=== PATIENT | male | born 1990 | race American Indian/Alaskan Native ===

== ENCOUNTER 2016-06-30 14:31 | Emergency (ER) | payer MEDICAID, OTHER ==
[~2016-06-30] VITALS: Ht 170.2 cm; Wt 97.9 kg
[2016-06-30 14:33] VITALS: BP 149/74
[2016-06-30 15:55] LABS: ASPARTATE AMINO TRANSFERASE 48 U/L (15-37); BLOOD UREA NITROGEN 8 mg/dL (7-18)
[2016-06-30] MEDS ORDERED: CEFAZOLIN 1,000 MG ONE (16:24)
[2016-06-30] MEDS ORDERED: CEFAZOLIN 1,000 MG IM ONE (16:30)
== END 2016-06-30 16:42 | disposition home or self-care (01) ==
LOC: ED 16:00
DX: L73.9 Follicular disorder, unspecified (principal)
CPT/HCPCS: 36415; 80053; 83605; 85025; 85651; 93971; 96372; 99285; J0690

== ENCOUNTER 2017-08-11 13:40 | Emergency (ER) | payer MEDICAID ==
[~2017-08-11] VITALS: Ht 170.2 cm; Wt 98.9 kg
[2017-08-11 14:25] LABS: MEAN CORPUSCULAR HEMOGLOBIN 29.5 pg (27.5-34.5); MEAN CORPUSCULAR HGB CONC 33.9 g/dL (33.2-36.2); MEAN CORPUSCULAR VOLUME 86.9 fL (81-97); MEAN PLATELET VOLUME 7.2 fL (7.4-10.4); PLATELET COUNT 390 x10^3/uL (130-400); RED BLOOD COUNT 5.23 x10^6/uL (4.38-5.82); RED CELL DISTRIBUTION WIDTH 12.9 % (9.4-14.8)
[2017-08-11 14:31] LABS: MD YES
[2017-08-11 14:37] LABS: MICROSCOPIC AUTO
[2017-08-11 14:39] LABS: CHLORIDE 103 mmol/L (98-107)
[2017-08-11 14:46] LABS: CULTURE INDICATED? YES
[2017-08-11 14:47] LABS: ALANINE AMINOTRANSFERASE 53 U/L (12-78); ALBUMIN 4.1 g/dL (3.4-5.0); ALKALINE PHOSPHATASE 108 U/L (45-117); ANION GAP 5 mmol/L (5-15); BILIRUBIN,TOTAL 0.9 mg/dL (0.2-1.0); CALCIUM 9.5 mg/dL (8.5-10.1); CREATININE 0.91 mg/dL (0.7-1.3); TOTAL PROTEIN 9.1 g/dL (6.4-8.2)
[2017-08-11] MEDS ORDERED: FLUT1DIS IH (15:03)
[2017-08-11 15:11] LABS: BAND#(MANUAL) 0.92 x10^3/uL; BANDS%(MANUAL) 4 % (0-7); BASOS#(MANUAL) 0.23 x10^3/uL (0-0.1); BASOS% (MANUAL) 1 % (0-1); EOS#(MANUAL) 0.92 x10^3/uL (0.0-0.4); EOS% (MANUAL) 4 % (1-7); LYMPH#(MANUAL) 0.69 x10^3/uL (1-3.4); LYMPHS% (MANUAL) 3 % (22-44); MONOS% (MANUAL) 7 % (2-9); SEG#(MANUAL) 18.55 x10^3/uL (1.8-6.8); SEGS% (MANUAL) 81 % (42-75)
[2017-08-11 15:12] LABS: <PLATELET ESTIMATE> ADEQUATE; <PLT MORPHOLOGY> NORMAL PLT MORPH; <RBC MORPHOLOGY> NORMAL
[2017-08-11] MEDS ORDERED: HYDROcodone/APAP 5/325 TABLET ONE ×2 (15:55→18:29)
[2017-08-11] MEDS ORDERED: HYDROcodone/APAP 5/325 TABLET PO ONE (16:00)
[2017-08-11] MEDS ORDERED: HYDROcodone/APAP 5/325 TABLET PO STA (18:13)
[2017-08-11 18:32] VITALS: BP 133/66
== END 2017-08-11 19:25 | disposition home or self-care (01) ==
LOC: ED 15:30
DX: N45.1 Epididymitis (principal); N45.2 Orchitis
CPT/HCPCS: 36415; 76870; 80053; 81001; 85025; 87086; 99285

== ENCOUNTER 2018-03-31 22:53 | Inpatient (IN) | payer MEDICAID, OTHER ==
[~2018-03-31] VITALS: Ht 170.2 cm; Wt 95.0 kg
[~2018-03-31 22:53] MED LIST: FLUT1DIS IH
[2018-03-31] MEDS ORDERED: ONDANSETRON 2MG/ML, 2ML IVPush ONE (23:30)
[2018-03-31] MEDS: AMPICILLIN/SULBACTAM 3 GM in SODIUM CHLORIDE 0.9% 100 ML IVPB ONE ×2 (23:30→23:50)
[2018-03-31] MEDS ORDERED: SODIUM CHLORIDE FLUSH 10ML SYR IVF ONE (23:30)
[2018-03-31] MEDS ORDERED: MORPHINE SULFATE 4 MG/ML, 1ML IV PRN (23:30)
[2018-03-31] MEDS ORDERED: DULARA INH (23:44)
[2018-03-31] MEDS ORDERED: ONDANSETRON 2MG/ML, 2ML ONE (23:44)
[2018-03-31] MEDS ORDERED: MORPHINE SULFATE 4 MG/ML, 1ML ONE (23:45)
--- NOTE | 2018-03-31 23:45 | NUR ---
PT PRESENTS TO ED WITH C/O PAINFUL RASH TO ABDOMEN X 2 DAYS. RED, RAISED RASH NOTED TO ABDOMEN. PIV ESTABLISHED. BLOOD CX DRAWN X 2 BY LAB. BP AND SPO2 MONITORS IN PLACE. CALL LIGHT IN REACH. EDMD CHELSIE AT BEDSIDE TO EXAMINE PT.
[2018-03-31 23:54] LABS: BASOPHILS # (AUTO) 0.02 x10^3/uL (0-0.1); BASOPHILS % (AUTO) 0 % (0-1); EOSINOPHILS # (AUTO) 0.01 x10^3/uL (0-0.4); EOSINOPHILS % (AUTO) 0 % (1-7); LYMPHOCYTES # (AUTO) 1.19 x10^3/uL (1-3.4); LYMPHOCYTES % (AUTO) 8 % (22-44); MD NO; MEAN CORPUSCULAR HEMOGLOBIN 30.3 pg (27.5-34.5); MEAN CORPUSCULAR HGB CONC 34.5 g/dL (33.2-36.2); MEAN CORPUSCULAR VOLUME 87.8 fL (81-97); MEAN PLATELET VOLUME 7.3 fL (7.4-10.4); MONOCYTES # (AUTO) 0.93 x10^3/uL (0.2-0.8); MONOCYTES % (AUTO) 6 % (2-9); NEUTROPHILS # (AUTO) 13.05 x10^3/uL (1.8-6.8); NEUTROPHILS % (AUTO) 86 % (42-75); PLATELET COUNT 280 x10^3/uL (130-400); RED BLOOD COUNT 4.96 x10^6/uL (4.38-5.82); RED CELL DISTRIBUTION WIDTH 13.6 % (9.4-14.8)
--- NOTE | 2018-03-31 23:59 | NUR ---
PT MEDICATED PER EMAR. PT TOLERATED WELL. PT AOX4. RESPS EVEN AND UNLABORED. BP/SPO2 MONITORS IN PLACE.
[2018-04-01] LABS: ALBUMIN 3.7 g/dL (3.4-5.0); ANION GAP 7 mmol/L (5-15); CALCIUM 8.7 mg/dL (8.5-10.1); CHLORIDE 105 mmol/L (98-107); CREATININE 0.86 mg/dL (0.7-1.3)
--- NOTE | 2018-04-01 | NUR ---
PT'S PAIN LEVEL DECREASED 9/10 TO 5/10 AT THIS TIME.
--- NOTE | 2018-04-01 00:05 | NUR ---
preceptor note: pt moved to room 18. bp and spo2 montiors in place. call light in reach. s/o at bedside. pt a&o, resps even and unlabored. nadn. pt to be admitted.
--- NOTE | 2018-04-01 00:11 | NUR ---
REPORT REC FROM SINDI OSORIO.
--- NOTE | 2018-04-01 00:17 | NUR ---
report to DEVON Deal.
[2018-04-01] MEDS ORDERED: MORPHINE SULFATE 4 MG/ML, 1ML IVPush PRN ×2 (00:30→01:30)
[2018-04-01] MEDS ORDERED: ONDANSETRON 2MG/ML, 2ML IVPush PRN ×2 (00:30→01:00)
[2018-04-01] MEDS ORDERED: ACETAMINOPHEN 325 MG TABLET PO PRN (01:00)
[2018-04-01] MEDS ORDERED: methylPREDNISolone SOD SUCC 125 MG/2 ML IVPush ONE (01:00)
[2018-04-01] MEDS ORDERED: LORazepam 2 MG/ML, 1ML IVPush PRN (01:00)
[2018-04-01 01:27] LABS: ALBUMIN 3.8 g/dL (3.4-5.0)
[2018-04-01 01:32] LABS: BILIRUBIN, DIRECT 0.3 mg/dL (0.1-0.2); BILIRUBIN,INDIRECT 1.1 mg/dL (0.0-2.0); BILIRUBIN,TOTAL 1.4 mg/dL (0.2-1.0); TOTAL PROTEIN 8.6 g/dL (6.4-8.2)
[2018-04-01 01:37] VITALS: BP 131/73
[2018-04-01] MEDS: D5%-0.45NACL+KCL 20MEQ 1,000 ML IV SCH ×3 (02:20→23:50)
[2018-04-01 07:14] VITALS: BP 141/81
[2018-04-01] MEDS: POTASSIUM CHLORIDE 20 MEQ TAB.ER.PRT PO SCH ×2 (07:59→16:13)
[2018-04-01] MEDS: AMPICILLIN/SULBACTAM 3 GM in SODIUM CHLORIDE 0.9% 100 ML IV SCH ×3 (07:59→23:50)
[2018-04-01] MEDS ORDERED: methylPREDNISolone SOD SUCC 40 MG/ML IV SCH (09:00)
[2018-04-01 13:01] VITALS: BP 126/67
[2018-04-01 21:17] VITALS: BP 118/62
[2018-04-02 01:12] VITALS: BP 103/55
[2018-04-02 04:57] LABS: BASOPHILS # (AUTO) 0.03 x10^3/uL (0-0.1); BASOPHILS % (AUTO) 0 % (0-1); EOSINOPHILS # (AUTO) 0.01 x10^3/uL (0-0.4); EOSINOPHILS % (AUTO) 0 % (1-7); LYMPHOCYTES # (AUTO) 1.54 x10^3/uL (1-3.4); LYMPHOCYTES % (AUTO) 11 % (22-44); MD NO; MEAN CORPUSCULAR HEMOGLOBIN 30.2 pg (27.5-34.5); MEAN CORPUSCULAR HGB CONC 34.2 g/dL (33.2-36.2); MEAN CORPUSCULAR VOLUME 88.3 fL (81-97); MEAN PLATELET VOLUME 7.4 fL (7.4-10.4); MONOCYTES # (AUTO) 0.86 x10^3/uL (0.2-0.8); MONOCYTES % (AUTO) 6 % (2-9); NEUTROPHILS # (AUTO) 11.28 x10^3/uL (1.8-6.8); NEUTROPHILS % (AUTO) 82 % (42-75); PLATELET COUNT 292 x10^3/uL (130-400); RED BLOOD COUNT 4.66 x10^6/uL (4.38-5.82); RED CELL DISTRIBUTION WIDTH 13.6 % (9.4-14.8)
[2018-04-02 05:07] LABS: ANION GAP 5 mmol/L (5-15); CALCIUM 8.8 mg/dL (8.5-10.1); CHLORIDE 109 mmol/L (98-107)
[2018-04-02 05:10] LABS: ALANINE AMINOTRANSFERASE 27 U/L (12-78); ALKALINE PHOSPHATASE 74 U/L (45-117); BILIRUBIN,TOTAL 0.7 mg/dL (0.2-1.0); CREATININE 0.74 mg/dL (0.7-1.3); TOTAL PROTEIN 7.5 g/dL (6.4-8.2)
[2018-04-02] MEDS ORDERED: FENTANYL PF 100 MCG/2ML ONE (07:59)
[2018-04-02] MEDS ORDERED: MIDAZOLAM 1 MG/ML, 2ML ONE (07:59)
[2018-04-02] MEDS ORDERED: BUPIVACAINE/PF 0.5% ONE (08:00)
[2018-04-02] MEDS ORDERED: D5%-0.45NACL+KCL 20MEQ 1,000 ML IV SCH (08:00)
[2018-04-02] MEDS ORDERED: KETOROLAC 30 MG/1 ML ONE (08:04)
[2018-04-02] MEDS ORDERED: DEXAMETHASONE 4 MG/ML, 1ML ONE (08:04)
[2018-04-02] MEDS ORDERED: CEFAZOLIN 1,000 MG ONE (08:04)
[2018-04-02] MEDS ORDERED: BUPIVACAINE/PF 0.5% INFIL ONE (08:14)
[2018-04-02] MEDS ORDERED: OXYcodone 5 MG/5 ML ORAL.SOL UDC ONE (08:34)
[2018-04-02] MEDS ORDERED: ALBUTEROL SULFATE 2.5 MG/3 ML NPPB PRN (09:00)
[2018-04-02] MEDS ORDERED: HYDROmorphone 2 MG/ML, 1ML IVPush PRN (09:00)
[2018-04-02] MEDS ORDERED: hydrALAzine 20 MG/ML, 1ML IV PRN (09:00)
[2018-04-02] MEDS ORDERED: OXYcodone 5 MG/5 ML ORAL.SOL UDC PO PRN (09:00)
[2018-04-02] MEDS ORDERED: PROMETHAZINE 25 MG/ML, 1ML IV PRN (09:00)
[2018-04-02] MEDS ORDERED: MEPERIDINE/PF 25MG/0.5ML IVPush PRN (09:00)
[2018-04-02] MEDS ORDERED: HALOPERIDOL 5 MG/ML IV PRN (09:00)
[2018-04-02] MEDS ORDERED: FENTANYL PF 100 MCG/2ML IV PRN (09:00)
[2018-04-02 09:09] VITALS: BP 120/61
[2018-04-02] MEDS: AMPICILLIN/SULBACTAM 3 GM in SODIUM CHLORIDE 0.9% 100 ML IV SCH ×2 (09:20→18:09)
[2018-04-02 11:27] LABS: HCT (SEDRATE) 39.3 % (39.2-51.8)
[2018-04-02] MEDS: DOXYCYCLINE 100 MG in DEXTROSE 5% 250 ML IV SCH ×2 (11:30→23:37)
[2018-04-02 14:46] VITALS: BP 123/67
[2018-04-02] MEDS: methylPREDNISolone SOD SUCC 125 MG/2 ML IVPush SCH ×2 (18:09→23:37)
[2018-04-02 19:23] VITALS: BP 143/69
[2018-04-03 01:10] VITALS: BP 146/73
[2018-04-03] MEDS: AMPICILLIN/SULBACTAM 3 GM in SODIUM CHLORIDE 0.9% 100 ML IV SCH ×3 (01:27→17:36)
[2018-04-03 05:27] LABS: BASOPHILS # (AUTO) 0.01 x10^3/uL (0-0.1); BASOPHILS % (AUTO) 0 % (0-1); EOSINOPHILS % (AUTO) 0 % (1-7); LYMPHOCYTES # (AUTO) 0.94 x10^3/uL (1-3.4); LYMPHOCYTES % (AUTO) 9 % (22-44); MD NO; MEAN CORPUSCULAR HEMOGLOBIN 30.3 pg (27.5-34.5); MEAN CORPUSCULAR HGB CONC 34.4 g/dL (33.2-36.2); MEAN CORPUSCULAR VOLUME 88.1 fL (81-97); MEAN PLATELET VOLUME 7.4 fL (7.4-10.4); MONOCYTES % (AUTO) 1 % (2-9); NEUTROPHILS # (AUTO) 9.47 x10^3/uL (1.8-6.8); NEUTROPHILS % (AUTO) 90 % (42-75); PLATELET COUNT 315 x10^3/uL (130-400); RED BLOOD COUNT 4.61 x10^6/uL (4.38-5.82); RED CELL DISTRIBUTION WIDTH 13.5 % (9.4-14.8)
[2018-04-03] MEDS: methylPREDNISolone SOD SUCC 125 MG/2 ML IVPush SCH ×4 (06:08→23:49)
[2018-04-03 06:46] VITALS: BP 130/71
[2018-04-03] MEDS: DOXYCYCLINE 100 MG in DEXTROSE 5% 250 ML IV SCH ×2 (11:16→23:49)
[2018-04-03 12:21] VITALS: BP 123/66
[2018-04-03 19:51] VITALS: BP 137/71
[2018-04-04] MEDS: AMPICILLIN/SULBACTAM 3 GM in SODIUM CHLORIDE 0.9% 100 ML IV SCH ×3 (02:21→17:47)
[2018-04-04 02:46] VITALS: BP 127/72
[2018-04-04 04:51] LABS: BASOPHILS # (AUTO) 0.02 x10^3/uL (0-0.1); BASOPHILS % (AUTO) 0 % (0-1); EOSINOPHILS % (AUTO) 0 % (1-7); LYMPHOCYTES # (AUTO) 1.14 x10^3/uL (1-3.4); LYMPHOCYTES % (AUTO) 10 % (22-44); MD NO; MEAN CORPUSCULAR HGB CONC 33.9 g/dL (33.2-36.2); MEAN CORPUSCULAR VOLUME 88.5 fL (81-97); MEAN PLATELET VOLUME 7.2 fL (7.4-10.4); MONOCYTES % (AUTO) 2 % (2-9); NEUTROPHILS # (AUTO) 10.52 x10^3/uL (1.8-6.8); NEUTROPHILS % (AUTO) 89 % (42-75); PLATELET COUNT 361 x10^3/uL (130-400); RED BLOOD COUNT 4.89 x10^6/uL (4.38-5.82); RED CELL DISTRIBUTION WIDTH 13.5 % (9.4-14.8)
[2018-04-04 05:04] LABS: ANION GAP 5 mmol/L (5-15); CALCIUM 8.9 mg/dL (8.5-10.1); CHLORIDE 106 mmol/L (98-107)
[2018-04-04 05:09] LABS: ALANINE AMINOTRANSFERASE 35 U/L (12-78); ALKALINE PHOSPHATASE 70 U/L (45-117); BILIRUBIN,TOTAL 0.5 mg/dL (0.2-1.0); CREATININE 0.81 mg/dL (0.7-1.3); TOTAL PROTEIN 7.3 g/dL (6.4-8.2)
[2018-04-04] MEDS: methylPREDNISolone SOD SUCC 125 MG/2 ML IVPush SCH ×3 (06:07→21:03)
[2018-04-04 06:51] VITALS: BP 137/69
[2018-04-04] MEDS: DOXYCYCLINE 100 MG in DEXTROSE 5% 250 ML IV SCH ×2 (11:30→23:48)
[2018-04-04 12:34] VITALS: BP 141/65
[2018-04-04 19:03] VITALS: BP 138/70
[2018-04-05 01:08] VITALS: BP 131/64
[2018-04-05] MEDS: AMPICILLIN/SULBACTAM 3 GM in SODIUM CHLORIDE 0.9% 100 ML IV SCH ×3 (02:17→17:38)
[2018-04-05 06:54] VITALS: BP 132/63
[2018-04-05] MEDS: methylPREDNISolone SOD SUCC 125 MG/2 ML IVPush SCH ×2 (08:28→20:43)
[2018-04-05] MEDS: DOXYCYCLINE 100 MG in DEXTROSE 5% 250 ML IV SCH ×2 (11:31→23:43)
[2018-04-05 12:23] VITALS: BP 132/67
[2018-04-05 15:49] LABS: MEAN CORPUSCULAR HEMOGLOBIN 29.2 pg (27.5-34.5); MEAN CORPUSCULAR HGB CONC 33.4 g/dL (33.2-36.2); MEAN CORPUSCULAR VOLUME 87.2 fL (81-97); MEAN PLATELET VOLUME 7.1 fL (7.4-10.4); PLATELET COUNT 431 x10^3/uL (130-400); RED BLOOD COUNT 5.27 x10^6/uL (4.38-5.82); RED CELL DISTRIBUTION WIDTH 13.2 % (9.4-14.8)
[2018-04-05 16:04] LABS: BASOPHILS # (AUTO) 0.11 x10^3/uL (0-0.1); BASOPHILS % (AUTO) 1 % (0-1); EOSINOPHILS % (AUTO) 0 % (1-7); LYMPHOCYTES # (AUTO) 1.19 x10^3/uL (1-3.4); LYMPHOCYTES % (AUTO) 8 % (22-44); MD SCAN; MONOCYTES # (AUTO) 0.53 x10^3/uL (0.2-0.8); MONOCYTES % (AUTO) 4 % (2-9); NEUTROPHILS # (AUTO) 12.53 x10^3/uL (1.8-6.8); NEUTROPHILS % (AUTO) 87 % (42-75)
[2018-04-05 16:37] LABS: HCT (SEDRATE) 45.9 % (39.2-51.8)
[2018-04-05 18:44] VITALS: BP 138/74
[2018-04-05] MEDS: FAMOTIDINE 40 MG TABLET PO SCH (20:43)
[2018-04-06 01:14] VITALS: BP 132/78
[2018-04-06] MEDS: AMPICILLIN/SULBACTAM 3 GM in SODIUM CHLORIDE 0.9% 100 ML IV SCH ×2 (02:09→10:23)
[2018-04-06 04:29] LABS: MEAN CORPUSCULAR HEMOGLOBIN 29.4 pg (27.5-34.5); MEAN CORPUSCULAR HGB CONC 33.4 g/dL (33.2-36.2); MEAN CORPUSCULAR VOLUME 88.1 fL (81-97); PLATELET COUNT 409 x10^3/uL (130-400); RED BLOOD COUNT 5.27 x10^6/uL (4.38-5.82); RED CELL DISTRIBUTION WIDTH 13.3 % (9.4-14.8)
[2018-04-06 04:40] LABS: ANION GAP 8 mmol/L (5-15); CALCIUM 8.1 mg/dL (8.5-10.1); CHLORIDE 106 mmol/L (98-107)
[2018-04-06 04:45] LABS: ALANINE AMINOTRANSFERASE 47 U/L (12-78); ALKALINE PHOSPHATASE 81 U/L (45-117); BILIRUBIN,TOTAL 0.5 mg/dL (0.2-1.0); CREATININE 0.79 mg/dL (0.7-1.3); TOTAL PROTEIN 7.1 g/dL (6.4-8.2)
[2018-04-06 05:20] LABS: BASOPHILS # (AUTO) 0.04 x10^3/uL (0-0.1); BASOPHILS % (AUTO) 0 % (0-1); EOSINOPHILS % (AUTO) 0 % (1-7); LYMPHOCYTES # (AUTO) 1.22 x10^3/uL (1-3.4); LYMPHOCYTES % (AUTO) 8 % (22-44); MD SCAN; MONOCYTES # (AUTO) 0.46 x10^3/uL (0.2-0.8); MONOCYTES % (AUTO) 3 % (2-9); NEUTROPHILS # (AUTO) 13.28 x10^3/uL (1.8-6.8); NEUTROPHILS % (AUTO) 89 % (42-75)
[2018-04-06 07:38] VITALS: BP 153/78
[2018-04-06] MEDS: FAMOTIDINE 40 MG TABLET PO SCH (09:37)
[2018-04-06] MEDS: methylPREDNISolone SOD SUCC 125 MG/2 ML IVPush SCH (09:37)
[2018-04-06] MEDS ORDERED: HYDROCORTISONE CRM 1%, 30GM TP SCH (10:30)
[2018-04-06] MEDS: DOXYCYCLINE 100 MG in DEXTROSE 5% 250 ML IV SCH (11:42)
[2018-04-06] MEDS ORDERED: ACET325T14 PO (13:24)
[2018-04-06] MEDS ORDERED: HYDR28CR33 TP (13:24)
[2018-04-06] MEDS ORDERED: FAMO40TA4 PO (13:24)
[2018-04-06] MEDS ORDERED: MINE454C2 TP (13:24)
[2018-04-06] MEDS ORDERED: methylPREDNISolone 4mg DOSE PACK PO SCH (13:30)
[2018-04-06 13:43] VITALS: BP 134/76
[2018-04-06] MEDS ORDERED: AMOX1TAB12 PO (14:04)
[2018-04-06] MEDS ORDERED: METH4TAB6 PO (14:04)
[2018-04-06] MEDS ORDERED: MINERA CRM, 60GM TP SCH (16:00)
[2018-04-06] MEDS ORDERED: AMOXICILLIN/CLAV 875-125MG TABLET PO SCH (21:00)
== END 2018-04-06 16:00 | disposition home or self-care (01) | DRG 872 ==
LOC: ED 04-01 00:32 → EDIP 04-01 00:50 → 3NE 04-01 01:09 → DCLOUNGE 04-06 15:45
PROVIDERS: ADMIT Internal Medicine; ATTEND Internal Medicine
PROC: 0HB7XZX Excision of Abdomen Skin, External Approach, Diagnostic (ICD-10-PCS; principal; 2018-04-02 08:00)
DX: A41.9 Sepsis, unspecified organism (principal); L03.311 Cellulitis of abdominal wall; L08.0 Pyoderma; E87.6 Hypokalemia; J45.909 Unspecified asthma, uncomplicated; L30.8 Other specified dermatitis; Z82.49 Family history of ischemic heart disease and other diseases of the circulatory system; Z83.3 Family history of diabetes mellitus
CPT/HCPCS: 36415; 80048; 80053; 80076; 82040; 83605; 84145; 85025; 85651; 86140; 87040; 88305; 88313; 96365; 96375; G0378; J0295; J0690; J1100; J1885; J2250; J2405; J3010; J3490; J7060; J7509; J2920; J2930; J3480